=== PATIENT | female | born 1955 | race Caucasian/White ===

== ENCOUNTER → 2017-02-20 | Outpatient (CLI) | payer BC ==
--- NOTE | 2017-02-23 11:58 | MM ---
Reason for exam: screening (asymptomatic). Last mammogram was performed 1 year and 8 months ago. History: Patient is postmenopausal and is nulliparous. Family history of premenopausal breast cancer in maternal cousin and breast cancer in maternal aunt. Excisional biopsy of the right breast, August 24, 2007. Benign US right guided mammotome of the right breast, August 05, 2007. Benign excisional biopsy of the left breast, 1988. 6 cyst aspirations of the left breast. 6 cyst aspirations of the right breast. Took hormonal contraceptives for 5 years beginning at age 17. Physical Findings: A clinical breast exam by your physician is recommended on an annual basis and results should be correlated with mammographic findings. MG Screening Mammo w CAD Bilateral CC and MLO view(s) were taken. Prior study comparison: June 21, 2015, bilateral MG screening mammo w CAD. December 15, 2012, CAD bilateral diagnostic mammogram. Finding: There are typically benign calcifications, stable. There is a chronic nodularity bilaterally. No significant changes in finding since June 21, 2015 and December 15, 2012. ASSESSMENT: Benign, BI-RAD 2 RECOMMENDATION: Routine screening mammogram of both breasts in 1 year.
== END | disposition home or self-care (01) ==
LOC: RADMAMWWP 10:43
PROVIDERS: ATTEND Family Medicine
DX: Z12.31 Encounter for screening mammogram for malignant neoplasm of breast (principal)

== ENCOUNTER → 2018-03-15 | Outpatient (CLI) | payer BC ==
--- NOTE | 2018-03-15 11:51 | XR ---
EXAMINATION TYPE: XR chest 2V DATE OF EXAM: 03/15/2018 COMPARISON: None HISTORY: 62 year-old female shortness of breath TECHNIQUE: Frontal and lateral views FINDINGS: The cardiomediastinal silhouette, aorta, and pulmonary vasculature are within normal limits. Lungs an d pleural spaces are clear. IMPRESSION: No acute cardiopulmonary process.
== END | disposition home or self-care (01) ==
LOC: RADXRMAIN 09:55
PROVIDERS: ATTEND Family Medicine
DX: R06.02 Shortness of breath (principal)
CPT/HCPCS: 71046

== ENCOUNTER → 2018-03-15 | Outpatient (CLI) | payer BC ==
--- NOTE | 2018-03-17 09:29 | MM ---
Reason for exam: screening (asymptomatic). Last mammogram was performed 1 year and 1 month ago. History: Patient is postmenopausal and is nulliparous. Family history of premenopausal breast cancer in maternal cousin and breast cancer in maternal aunt. Excisional biopsy of the right breast, August 24, 2007. Benign US right guided mammotome of the right breast, August 05, 2007. Benign excisional biopsy of the left breast, 1988. 6 cyst aspirations of the left breast. 6 cyst aspirations of the right breast. Took hormonal contraceptives for 5 years beginning at age 17. Physical Findings: A clinical breast exam by your physician is recommended on an annual basis and results should be correlated with mammographic findings. MG Screening Mammo w CAD Bilateral CC and MLO view(s) were taken. Technologist: RT Kaushik (R)(M) Prior study comparison: February 20, 2017, bilateral MG screening mammo w CAD. June 21, 2015, bilateral MG screening mammo w CAD. There are scattered fibroglandular densities. There is chronic nodularity bilaterally. No significant changes when compared with prior studies. ASSESSMENT: Benign, BI-RAD 2 RECOMMENDATION: Routine screening mammogram of both breasts in 1 year.
== END | disposition home or self-care (01) ==
LOC: RADMAMWWP 09:36
PROVIDERS: ATTEND Family Medicine
DX: Z12.31 Encounter for screening mammogram for malignant neoplasm of breast (principal)
CPT/HCPCS: 77067

== ENCOUNTER → 2018-11-22 | Outpatient (CLI) | payer BC ==
--- NOTE | 2018-11-22 12:06 | CTL ---
EXAMINATION TYPE: CT Low Dose Lung DATE OF EXAM ORDERED: 11/22/2018 HISTORY: Long-term tobacco use. Lung cancer screening CT DLP: 82.[address] CTDI: 2.4 mGy Automated exposure control for dose reduction was used. SCREENING VISIT: Initial study COMPARISON: None TECHNIQUE: Low dose computed tomography scan was performed through the chest at 1 mm thick sections a nd reconstructed images in the coronal plane at [address] DIAGNOSTIC QUALITY: Satisfactory FINDINGS: LUNG NODULES: Present, detailed below: A 3 mm posterior lateral right upper lobe nodule axial image 69. A 7 x 4 mm groundglass opacity or nodule axial image 58 right upper lobe. A 5 x 3 mm right upper lobe nodule image 62. LUNGS: COPD: Severity: Mild Fibrosis: Severity: Mild biapical Lymph nodes: None Other findings: None BILATERAL PLEURAL SPACE: Effusion: None. Calcification: None. Thickening: None. Pneumothorax: None. HEART: Heart Size: Normal Coronary calcification: [id number] Pericardial effusion: None OTHER FINDINGS: Upper abdomen: None Bony thorax: Mild multilevel spurring. Slight S-shaped scoliosis is present. Supraclavicular region: No suspicious findings seen. Other: No suspicious findings. IMPRESSION: Scattered small nodules as detailed above. FOLLOW UP CT CHEST RECOMMENDATION: Follow-up low-dose lung screening CT in [address] LUNG RAD: Lung-Rad 3 Probably Benign
== END | disposition home or self-care (01) ==
LOC: RADCTMAIN 11:26
PROVIDERS: ATTEND Family Medicine
DX: Z12.2 Encounter for screening for malignant neoplasm of respiratory organs (principal); R91.8 Other nonspecific abnormal finding of lung field; F17.210 Nicotine dependence, cigarettes, uncomplicated

== ENCOUNTER → 2019-05-14 | Outpatient (CLI) | payer BC ==
--- NOTE | 2019-05-14 18:37 | CT ---
EXAMINATION TYPE: CT chest wo/w con DATE OF EXAM: 05/14/2019 COMPARISON: 11/22/2018 HISTORY: pulmonary nodules CT DLP: 719.6 mGycm, Automated exposure control for dose reduction was used. CONTRAST: Performed injected with 100 mL of Isovue 300. TECHNIQUE: Axial images were obtained at 5 mm thick sections. Reconstructed images are reviewed on [email or web address] computer in the coronal plane. FINDINGS: Thyroid is prominent and thickened. Correlate for thyromegaly. Ultrasound could be performe d for additional evaluation. No suspicious lung nodules or focal infiltrates are present. Previous right apical nodules are not ev ident. Previous posterior lateral right upper lobe nodule is only faintly visualized and is smaller t hernandez comparison. Series 4 image 13. No enlarged mediastinal or hilar adenopathy is evident. The ascending aorta diameter at the level o f the main pulmonary artery is 3.4 cm. The main pulmonary artery diameter at the bifurcation is 2.8 cm. Mild coronary artery calcification is present. Limited CT sections are obtained through the upper abdomen. Pancreatic atrophy is present. Small sple nule is present. IMPRESSIONS: 1. Correlate for thyromegaly. 2. No acute intrathoracic abnormality. 3. Previous right upper lobe nodules have diminished in size or resolved. Recommendations: 1. Follow-up low-dose CT screening thorax in 6 months, one year from initial screening CT thorax exam .
== END ==
LOC: RADCTMAIN 09:00
PROVIDERS: ATTEND Family Medicine
DX: R91.8 Other nonspecific abnormal finding of lung field (principal)
CPT/HCPCS: 71270; Q9967

== ENCOUNTER → 2020-05-05 | Outpatient (CLI) | payer BC ==
--- NOTE | 2020-05-05 10:33 | CT ---
EXAMINATION TYPE: CT chest wo con DATE OF EXAM: 05/05/2020 COMPARISON: 05/14/2019 HISTORY: Follow up nodule CT DLP: 354.8 mGycm. Automated Exposure Control for Dose Reduction was Utilized. TECHNIQUE: CT scan of the thorax is performed without IV contrast. FINDINGS: LUNGS: Subsegmental changes in upper lobes are seen likely due to atelectasis. 1 to 2 mm right upper lobe pulmonary nodule stable. No pleural effusion or pneumothorax. No consolidative pneumonia.. MEDIASTINUM: Lack of IV contrast is noted to limit evaluation for mediastinal and especially hilar ad enopathy. There are no definitive greater than 1 cm hilar or mediastinal lymph nodes. The ascending aorta diameter at the level of the main pulmonary artery is 3.4 cm. The main pulmonary artery diamet er at the bifurcation is 2.8 cm. Mild coronary artery calcification is present. OTHER: Hypertrophic and degenerative change of the spine. Thyroid gland appears enlarged there is a l eft breast nodule measuring 9 mm stable from prior exam. Recommend mammogram. Small hiatal hernia not ed. IMPRESSION: 1. Stable right upper lobe 2 mm pulmonary nodule. 2. Areas of subsegmental consolidation in both lungs most typical of atelectasis correlate clinically to exclude a pneumonitis. 3. Thyromegaly. 4. 9 mm left breast nodule recommend mammogram. 5. Coronary artery calcification.
== END | disposition home or self-care (01) ==
LOC: RADCTMAIN 09:51
PROVIDERS: ATTEND Family Medicine
DX: R91.1 Solitary pulmonary nodule (principal); E01.0 Iodine-deficiency related diffuse (endemic) goiter
CPT/HCPCS: 71250

== ENCOUNTER → 2021-02-25 | Outpatient (CLI) | payer BC ==
--- NOTE | 2021-02-25 12:36 | CT ---
EXAMINATION TYPE: CT chest wo con DATE OF EXAM: 02/25/2021 COMPARISON: 05/05/2020 HISTORY: Solitary pulmonary nodule CT DLP: 360.3 mGycm. Automated Exposure Control for Dose Reduction was Utilized. TECHNIQUE: CT scan of the thorax is performed without IV contrast. FINDINGS: LUNGS: Subsegmental changes in upper lobes are seen likely due to atelectasis. 1 to 2 mm right upper lobe pulmonary nodule stable. No pleural effusion or pneumothorax. No consolidative pneumonia. Subple ural nodule likely on the basis of pleural thickening measuring 5 mm posterior superior segment right lower lobe. MEDIASTINUM: Lack of IV contrast is noted to limit evaluation for mediastinal and especially hilar ad enopathy. There are no definitive greater than 1 cm hilar or mediastinal lymph nodes. The ascending aorta diameter at the level of the main pulmonary artery is 3.4 cm. The main pulmonary artery diamet er at the bifurcation is 2.8 cm. Mild coronary artery calcification is present. OTHER: Hypertrophic and degenerative change of the spine. Thyroid gland appears enlarged there is a left breast nodule measuring 9 mm stable from prior exam. Recommend mammogram. Small hiatal hernia no tori. There is an indeterminate right renal lesion IMPRESSION: 1. Stable 2 mm right upper lobe pulmonary nodule likely benign. 2. Stable subsegmental changes in the right apical upper lobe most likely in the basis of atelectasis . 3. Stable thyromegaly. 4. There are persistently left-sided breast nodule measuring 9 mm stable from prior exam. 5. Persistent coronary artery calcifications. 6. Indeterminate right renal lesion.
== END | disposition home or self-care (01) ==
LOC: RADCTMAIN 08:02
PROVIDERS: ATTEND Family Medicine
DX: R91.1 Solitary pulmonary nodule (principal); N63.0 Unspecified lump in unspecified breast; I25.10 Atherosclerotic heart disease of native coronary artery without angina pectoris
CPT/HCPCS: 71250

== ENCOUNTER → 2021-03-08 | Outpatient (CLI) | payer BC ==
--- NOTE | 2021-03-11 08:40 | MM ---
Reason for exam: additional evaluation requested from prior study. Last mammogram was performed 3 years ago. History: Patient is postmenopausal and is nulliparous. Family history of premenopausal breast cancer in maternal cousin and breast cancer in maternal aunt. Excisional biopsy of the right breast, August 24, 2007. Benign US right guided mammotome of the right breast, August 05, 2007. Benign excisional biopsy of the left breast, 1988. 6 cyst aspirations of the left breast. 6 cyst aspirations of the right breast. Took hormonal contraceptives for 5 years beginning at age 17. Physical Findings: Nurse did not find any significant physical abnormalities on exam. MG Diagnostic Mammo w CAD JESUS Bilateral CC and MLO view(s) were taken. Prior study comparison: March 15, 2018, bilateral MG screening mammo w CAD. February 20, 2017, bilateral MG screening mammo w CAD. June 21, 2015, bilateral MG screening mammo w CAD. The breast tissue is heterogeneously dense. This may lower the sensitivity of mammography. Finding: There is a 10 mm oval mass in the lower inner quadrant, anterior position of the left breast. There is a chronic nodularity bilaterally. New finding since March 15, 2018. These results were verbally communicated with the patient and result sheet given to the patient on 03/08/21. ASSESSMENT: Incomplete: need additional imaging evaluation, BI-RAD 0 RECOMMENDATION: Ultrasound of the left breast.
--- NOTE | 2021-03-11 08:48 | USB ---
Reason for exam: additional evaluation requested from abnormal screening. History: Patient is postmenopausal and is nulliparous. Family history of premenopausal breast cancer in maternal cousin and breast cancer in maternal aunt. Excisional biopsy of the right breast, August 24, 2007. Benign US right guided mammotome of the right breast, August 05, 2007. Benign excisional biopsy of the left breast, 1988. 6 cyst aspirations of the left breast. 6 cyst aspirations of the right breast. Took hormonal contraceptives for 5 years beginning at age 17. US Breast Limited LT Left limited breast ultrasound including focal area of concern, retroareolar and axilla demonstrates a 0.8 x 0.7 x 0.7cm oval, cystic lesion at 8 o'clock. These results were verbally communicated with the patient and result sheet given to the patient on 03/08/21. ASSESSMENT: Benign, BI-RAD 2 RECOMMENDATION: Routine screening mammogram of both breasts in 1 year.
== END | disposition home or self-care (01) ==
LOC: RADMAMWWP 13:27
PROVIDERS: ATTEND Family Medicine
DX: R92.8 Other abnormal and inconclusive findings on diagnostic imaging of breast (principal)
CPT/HCPCS: 77066

== ENCOUNTER 2021-04-10 10:07 | Day surgery (SDC) | payer BC ==
[2021-04-09 10:09] VITALS: BMI 28.3
[~2021-04-10 10:07] MED LIST: LACTATED RINGERS 1,000 ML IV SCH
[2021-04-10 10:48] VITALS: TEMP 97.5
[2021-04-10] MEDS ORDERED: PROPOFOL 10 MG/ML 20 ML VIAL IV ONE (11:28)
--- NOTE | 2021-04-10 11:56 | P.PCN ---
Date of Procedure: 04/10/21 Procedure(s) Performed: BRIEF HISTORY: Patient is a 65-year-old pleasant white female scheduled for an elective colonoscopy as a part of screening for colon rectal neoplasia. PROCEDURE PERFORMED: Colonoscopy snare polypectomy. PREOPERATIVE DIAGNOSIS: Screening For colon cancer. IV sedation per Anesthesia. PROCEDURE: After informed consent was obtained, the patient, was brought into the endoscopy unit. IV sedation was administered by Anesthesia under continuous monitoring. Digital rectal examination was normal. Initially the Olympus CF-160 flexible video colonoscope was then inserted in the rectum, gradually advanced into the cecum without any difficulty. Careful examination was performed as the scope was gradually being withdrawn. Ileocecal valve and the appendiceal orifice were visualized and appeared normal. Prep was excellent. Mucosa of the cecum, ascending colon, transverse colon, descending colon, sigmoid colon, appeared normal. In the rectosigmoid colon there was a 1 cm polyp removed by snare polypectomy. In the rectum there was a 5 mm polyp removed by snare polypectomy. Retroflexion was performed in the rectum and no lesions were seen. The patient tolerated the procedure well. IMPRESSION: 1 cm rectosigmoid polyp status post polypectomy 5 mm rectal polyp status post polyp RECOMMENDATIONS: Findings of this examination were discussed with the patientas well as a family. She was advised to follow with the biopsy. If the biopsy is adenoma she can have a repeat colonoscopy in 3 years].
[2021-04-10 12:10] VITALS: BP 112/74; PULSE 54; RESP 16
== END 2021-04-10 12:31 | disposition home or self-care (01) ==
LOC: ORWHC2ENDO 10:07
PROVIDERS: ATTEND Internal Medicine Gastroenterology
DX: Z12.11 Encounter for screening for malignant neoplasm of colon (principal); K63.5 Polyp of colon; F17.210 Nicotine dependence, cigarettes, uncomplicated; I10 Essential (primary) hypertension; E78.5 Hyperlipidemia, unspecified; Z88.2 Allergy status to sulfonamides; Z91.048 Other nonmedicinal substance allergy status; Z79.899 Other long term (current) drug therapy
CPT/HCPCS: 88305; 45385; J2704

== ENCOUNTER → 2022-12-01 | Outpatient (CLI) | payer MEDICARE, BC ==
[2022-12-01 17:14] LABS: African American GFR (CKD) >90 (>60 ml/min/1.73 sqM); Blood Urea Nitrogen 18 mg/dL (7-17); Non-African American GFR(CKD) >90 (>60 ml/min/1.73 sqM)
--- NOTE | 2022-12-02 11:25 | CT ---
EXAMINATION TYPE: CT abdomen w con DATE OF EXAM: 12/01/2022 COMPARISON: CT chest 03/07/2021 HISTORY: Cysts on right kidney CT DLP: 931.7 mGycm Automated exposure control for dose reduction was used. TECHNIQUE: Helical acquisition of images was performed from the lung bases through the top of iliac crest to include entire abdomen. CONTRAST: Performed with Oral Contrast and with IV Contrast, patient injected with 100cc mL of Isovue 300. FINDINGS: LUNG BASES: No significant abnormality is appreciated. LIVER/GB: No significant abnormality is appreciated. PANCREAS: No significant abnormality is seen. SPLEEN: No significant abnormality is seen. ADRENALS: No significant abnormality is seen. KIDNEYS: Right kidney: There is a 1.8 cm exophytic lesion extending off the mid pole right kidney measuring 36 Hounsfield units. There is an exophytic upper pole lesion measuring 2 cm and 17 Hounsfield units. There is a punctate 3 mm nonobstructing right renal calculus. Additionally, suggestion of bifid renal collecting system. Left kidney: Punctate 3 mm mid pole nonobstructing left renal calculus. BOWEL: No significant abnormality is seen. LYMPH NODES: No significant abnormality is seen. OSSEOUS STRUCTURES: No significant abnormality is seen. FREE AIR: No free air is visualized. OTHER: Atherosclerotic change aorta. Its wall hiatal hernia incidentally noted. Hypertrophic and dege nerative changes of the spine. Multilevel facet arthropathy. Small fat-containing periumbilical herni a. Bilateral subcentimeter nodules within the bilateral breasts. IMPRESSION: 1. There are two approximately 2 cm lesions involving the right kidney which do not meet the criteria for simple cyst by Hounsfield unit measurement. Most likely etiology would be a Bosniak classificati on 2 hemorrhagic or highly proteinaceous cysts. However, MRI is recommended to fully characterize the lesions and their Bosniak classification. 2. Nonobstructing bilateral renal calculi. 3. There bilateral subcentimeter nodules within the breasts recommend follow-up mammogram.
== END | disposition home or self-care (01) ==
LOC: RADCTMAIN 16:25
PROVIDERS: ATTEND Family Medicine
DX: N20.0 Calculus of kidney (principal); N63.20 Unspecified lump in the left breast, unspecified quadrant; N63.10 Unspecified lump in the right breast, unspecified quadrant; N28.1 Cyst of kidney, acquired; N28.89 Other specified disorders of kidney and ureter
CPT/HCPCS: 82565; 84520; 74160; 36415; Q9967

== ENCOUNTER → 2022-12-02 | Outpatient (CLI) | payer MEDICARE, BC ==
--- NOTE | 2022-12-03 09:14 | MM ---
Reason for Exam: Screening (asymptomatic). Last mammogram was performed 1 year(s) and 9 month(s) ago. Patient History: Menarche at age 12. Patient has no children. Postmenopausal. Hormonal Contraceptives for 5 years from age 17 until age 22. 08/24/2007, Excisional Biopsy on the Right side. Cyst Aspiration on the Right side. Cyst Aspiration on the Right side. Cyst Aspiration on the Right side. Cyst Aspiration on the Right side. Cyst Aspiration on the Right side. Cyst Aspiration on the Right side. Cyst Aspiration on the Left side. Cyst Aspiration on the Left side. Cyst Aspiration on the Left side. Cyst Aspiration on the Left side. Cyst Aspiration on the Left side. Cyst Aspiration on the Left side. 1988, Benign Excisional Biopsy on the left side. 08/05/2007, Benign Core Biopsy on the right side. Maternal cousin had breast cancer at or over age 50. Maternal aunt had breast cancer under age 50. Maternal aunt had breast cancer at or over age 50. Maternal cousin had breast cancer under age 50. Risk Values: Pamela 5 year model risk: 3.1%. NCI Lifetime model risk: 10.8%. Prior Study Comparison: 02/12/2010 Bilateral Diagnostic Mammogram, [facility]. 12/15/2012 Bilateral Diagnostic Mammogram, [facility]. 06/21/2015 Bilateral Screening Mammogram, [facility]. 02/20/2017 Bilateral Screening Mammogram, [facility]. 03/15/2018 Bilateral Screening Mammogram, [facility]. 03/08/2021 Bilateral Diagnostic Mammogram, [facility]. Tissue Density: The breast tissue is heterogeneously dense. This may lower the sensitivity of mammography. Findings: Analyzed By CAD. There is no suspicious group of microcalcifications or new suspicious mass in either breast. Chronic nodularity within both breasts appears stable. Benign calcifications in the left breast. Overall Assessment: Benign, BI-RAD 2 Management: Screening Mammogram of both breasts in 1 year. A clinical breast exam by your physician is recommended on an annual basis and results should be correlated with mammographic findings. Electronically signed and approved by: Yayo Gonzalez D.O.
== END | disposition home or self-care (01) ==
LOC: RADMAMWWP 08:22
PROVIDERS: ATTEND Family Medicine
DX: Z12.31 Encounter for screening mammogram for malignant neoplasm of breast (principal); Z78.0 Asymptomatic menopausal state; Z80.3 Family history of malignant neoplasm of breast
CPT/HCPCS: 77063; 77067

== ENCOUNTER → 2023-03-10 | Outpatient (CLI) | payer MEDICARE, BC ==
--- NOTE | 2023-03-14 09:18 | MR ---
EXAMINATION TYPE: MR kidney wo/w con DATE OF EXAM: 03/10/2023 10:31 PM INDICATION: Patient age:Female; 67 years old; Reason for study: N28.1;. Cyst of kidney COMPARISON: CT scan abdomen from 12/01/2022. TECHNIQUE: Multiplanar multi-sequence imaging was performed without contrast. Post contrast imaging was performed. Post IV contrast subtraction images were also submitted for review. IV Contrast: 8 cc Gadavist FINDINGS: LOWER CHEST: No gross irregularity. ABDOMEN Liver: High T2 signal cyst in segment 4A measuring 5 mm additional scattered smaller cysts are also p resent. Gallbladder and Bile ducts: Unremarkable. Pancreas: Main pancreatic duct is nondilated. There are some prominent accessory ducts noted. Spleen: Unremarkable. Adrenal glands: Unremarkable. Kidneys: Right: scattered subcentimeter high T2 signal simple appearing renal cysts measuring up to 4 mm. Additionally there is a low T2 high T1 signal lesion present in the renal cortex measuring 8 mm delia tible with proteinaceous/hemorrhagic cyst. The 2 lesions of concern from prior CT measuring 2.3 cm posteriorly laterally and 2.2 cm posterior me dially remain similar to prior CT in size. The medial lesion demonstrates intrinsic high T1 signal. T he lateral lesion does not demonstrate intrinsic high T1 signal. Postcontrast imaging demonstrates no abnormal postcontrast enhancement. Findings confirmed on subtraction imaging. There are no suspiciou s renal lesions. Left: High T2 signal nonenhancing subcentimeter cysts present. There is subcentimeter scattered foci of high a intrinsic T1 signal largest measuring 4 mm compatible with proteinaceous/hemorrhagic cyst. Stomach and Bowel: Unremarkable as visualized. Peritoneum: No evidence of pneumoperitoneum or free fluid. Vasculature: Unremarkable. No aortic aneurysm. Musculoskeletal: The osseous structures appear intact. Lymph Nodes: No gross evidence for lymphadenopathy. Abdominal wall: Unremarkable. IMPRESSION: 1. The lesions of concern within the right kidney are compatible with benign Bosniak type I and II r enal cysts no suspicious or renal masses identified. Additional bilateral neck and Bosniak type I-typ e II renal cysts are present in bilateral kidneys which are not well appreciated on prior CT due to t heir size. 2. No acute abdominal process
== END | disposition home or self-care (01) ==
LOC: RADMRIMAIN 21:15
PROVIDERS: ATTEND Family Medicine
DX: N28.1 Cyst of kidney, acquired (principal); N28.89 Other specified disorders of kidney and ureter
CPT/HCPCS: 74183; A9585

== ENCOUNTER → 2023-12-30 | Outpatient (CLI) | payer MEDICARE, BC ==
--- NOTE | 2023-12-30 11:23 | CTL ---
EXAMINATION TYPE: CT Low Dose Lung DATE OF EXAM ORDERED: 12/30/2023 HISTORY: Long-term tobacco use. Lung cancer screening CT DLP: 78.[address] CTDI: 2.4 mGy Automated exposure control for dose reduction was used. SCREENING VISIT: First after baseline COMPARISON: Prior study November 22, 2018 TECHNIQUE: Low dose computed tomography scan was performed through the chest at 1 mm thick sections a nd reconstructed images in multiple planes at 1 mm and [address] DIAGNOSTIC QUALITY: Satisfactory LUNG NODULES: Present, detailed below: Few scattered small nodules redemonstrated. A 3 mm posterior lateral right upper lobe nodule axial image 57 stable. A approximately by 6 mm groundglass nodule axial image 45 right upper lobe stable accounting for tech nical differences. A 3 mm right upper lobe nodule image 52 stable. Additional scattered small nodules are stable for reference 4 mm left mid lung nodule axial image 135 . No enlarging greater than 6 mm pulmonary nodules. LUNGS: COPD: Severity: Mild Fibrosis: Severity: None Lymph nodes: None Other findings: None BILATERAL PLEURAL SPACE: Effusion: None. Calcification: None. Thickening: None. Pneumothorax: None. HEART: Heart Size: Normal Coronary calcification: Moderate Pericardial effusion: None OTHER FINDINGS: Upper abdomen: None Bony thorax: Mild multilevel spurring. Slight S-shaped scoliosis is redemonstrated. Supraclavicular region: Suspect small calcified left thyroid nodule-like axial image 1. Other: No suspicious findings. IMPRESSION: Stable Scattered small nodules as detailed above. No new or enlarging greater than [address] LUNG RAD AND CT CHEST RECOMMENDATION: Lung-Rad 2 Benign Appearance or Behavior: Continue annual sc reening with LDCT in 12 months. S Modifier (other clinically significant findings): None
--- NOTE | 2023-12-31 09:02 | MM ---
Reason for Exam: Screening (asymptomatic). Last mammogram was performed 1 year(s) and 1 month(s) ago. Patient History: Menarche at age 12. Patient has no children. Postmenopausal. Hormonal Contraceptives for 5 years from age 17 until age 22. 08/24/2007, Excisional Biopsy on the Right side. Cyst Aspiration on the Right side. Cyst Aspiration on the Right side. Cyst Aspiration on the Right side. Cyst Aspiration on the Right side. Cyst Aspiration on the Right side. Cyst Aspiration on the Right side. Cyst Aspiration on the Left side. Cyst Aspiration on the Left side. Cyst Aspiration on the Left side. Cyst Aspiration on the Left side. Cyst Aspiration on the Left side. Cyst Aspiration on the Left side. 1988, Benign Excisional Biopsy on the left side. 08/05/2007, Benign Core Biopsy on the right side. Maternal cousin had breast cancer at or over age 50. Maternal aunt had breast cancer under age 50. Maternal aunt had breast cancer at or over age 50. Maternal cousin had breast cancer under age 50. Risk Values: Pamela 5 year model risk: 3.1%. NCI Lifetime model risk: 10.4%. Prior Study Comparison: 06/21/2015 Bilateral Screening Mammogram, [facility]. 02/20/2017 Bilateral Screening Mammogram, [facility]. 03/15/2018 Bilateral Screening Mammogram, [facility]. 03/08/2021 Bilateral Diagnostic Mammogram, [facility]. 12/02/2022 Bilateral MG 3D screening mammo w/cad, [facility]. Tissue Density: The breasts are heterogeneously dense, which may obscure small masses. Findings: Analyzed By CAD. There is bilateral chronic nodularity is stable. Benign appearing calcifications. Within the central aspect of the left breast there is interval increase in size of a nodule approximately 6.8 cm from the nipple line. Recommend spot compression view. Overall Assessment: Incomplete: need additional imaging evaluation, BI-RAD 0 Management: Diagnostic Mammogram of the left breast. . Patient should continue monthly self-breast exams. A clinical breast exam by your physician is recommended on an annual basis. This exam should not preclude additional follow-up of suspicious palpable abnormalities. Note on Pamela scores and lifetime risk: 1. A Pamela score greater than 3% is considered moderate risk. If this is the case, consider specialist referral to assess eligibility for a risk reducing agent. 2. If overall lifetime risk for the development of breast cancer is 20% or higher, the patient may qualify for future screening with alternating mammogram and breast MRI. Electronically signed and approved by: Remy Young M.D. Radiologis
== END | disposition home or self-care (01) ==
LOC: RADMAMWWP 10:13
PROVIDERS: ATTEND Family Medicine
DX: Z12.31 Encounter for screening mammogram for malignant neoplasm of breast (principal); Z12.2 Encounter for screening for malignant neoplasm of respiratory organs; F17.210 Nicotine dependence, cigarettes, uncomplicated; R91.8 Other nonspecific abnormal finding of lung field; Z80.3 Family history of malignant neoplasm of breast; Z78.0 Asymptomatic menopausal state
CPT/HCPCS: 71271; 77067

== ENCOUNTER → 2024-01-04 | Outpatient (CLI) | payer MEDICARE, BC ==
--- NOTE | 2024-01-04 10:25 | MM ---
Reason for Exam: Additional evaluation requested from abnormal screening. Last screening mammogram was performed less than 1 month ago. Patient History: Menarche at age 12. Patient has no children. Postmenopausal. Hormonal Contraceptives for 5 years from age 17 until age 22. 08/24/2007, Excisional Biopsy on the Right side. Cyst Aspiration on the Right side. Cyst Aspiration on the Right side. Cyst Aspiration on the Right side. Cyst Aspiration on the Right side. Cyst Aspiration on the Right side. Cyst Aspiration on the Right side. Cyst Aspiration on the Left side. Cyst Aspiration on the Left side. Cyst Aspiration on the Left side. Cyst Aspiration on the Left side. Cyst Aspiration on the Left side. Cyst Aspiration on the Left side. 1988, Benign Excisional Biopsy on the left side. 08/05/2007, Benign Core Biopsy on the right side. Maternal cousin had breast cancer at or over age 50. Maternal aunt had breast cancer under age 50. Maternal aunt had breast cancer at or over age 50. Maternal cousin had breast cancer under age 50. Risk Values: Pamela 5 year model risk: 3.1%. NCI Lifetime model risk: 10.4%. Prior Study Comparison: 03/08/2021 Bilateral Diagnostic Mammogram, [facility]. 12/02/2022 Bilateral MG 3D screening mammo w/cad, [facility]. 12/30/2023 Bilateral MG screening mammo w CAD, [facility]. Tissue Density: Left: The breasts are heterogeneously dense, which may obscure small masses. Findings: Analyzed By CAD. The pattern is stable. Under compression there is some circumscribed rounded densities. Short-term follow-up recommended. Overall Assessment: Probably benign, BI-RAD 3 Management: Diagnostic Mammogram of the left breast in 6 months. A negative mammogram report should not preclude additional follow up of suspicious palpable abnormalities. Patient should continue monthly self breast exam. A clinical breast exam by your physician is recommended on an annual basis and results should be correlated with mammographic findings. Note on Pamela scores and lifetime risk: 1. A Pamela score greater than 3% is considered moderate risk. If this is the case, consider specialist referral to assess eligibility for a risk reducing agent. 2. If overall lifetime risk for the development of breast cancer is 20% or higher, the patient may qualify for future screening with alternating mammogram and breast MRI. Electronically signed and approved by: Evan Leslie D.O. Radiologis
== END | disposition home or self-care (01) ==
LOC: RADMAMWWP 10:00
PROVIDERS: ATTEND Family Medicine
DX: R92.332 Mammographic heterogeneous density, left breast (principal); R92.8 Other abnormal and inconclusive findings on diagnostic imaging of breast; Z78.0 Asymptomatic menopausal state; Z80.3 Family history of malignant neoplasm of breast
CPT/HCPCS: 77065; G0279; 77061

== ENCOUNTER → 2024-12-27 | Outpatient (CLI) | payer MEDICARE, BC ==
--- NOTE | 2024-12-27 11:53 | MM ---
Reason for Exam: Additional evaluation requested from prior study. Last screening mammogram was performed 12 month(s) ago. Patient History: Menarche at age 12. Patient has no children. Postmenopausal. Hormonal Contraceptives for 5 years from age 17 until age 22. 08/24/2007, Excisional Biopsy on the Right side. Cyst Aspiration on the Right side. Cyst Aspiration on the Right side. Cyst Aspiration on the Right side. Cyst Aspiration on the Right side. Cyst Aspiration on the Right side. Cyst Aspiration on the Right side. Cyst Aspiration on the Left side. Cyst Aspiration on the Left side. Cyst Aspiration on the Left side. Cyst Aspiration on the Left side. Cyst Aspiration on the Left side. Cyst Aspiration on the Left side. 1988, Benign Excisional Biopsy on the left side. 08/05/2007, Benign Core Biopsy on the right side. Maternal cousin had breast cancer at or over age 50. Maternal aunt had breast cancer under age 50. Maternal aunt had breast cancer at or over age 50. Maternal cousin had breast cancer under age 50. Risk Values: Pamela 5 year model risk: 3.1%. NCI Lifetime model risk: 10.0%. Prior Study Comparison: 05/11/1995 Screening Mammogram, Unknown. 06/23/1996 Screening Mammogram, Unknown. 02/13/2009 Left Diagnostic Ultrasound, [facility]. 01/22/2010 Bilateral Screening Mammogram, [facility]. 02/12/2010 Bilateral Diagnostic Mammogram, [facility]. 02/12/2010 Bilateral Diagnostic Ultrasound, [facility]. 12/15/2012 Bilateral Diagnostic Mammogram, [facility]. 12/15/2012 Right Diagnostic Ultrasound, [facility]. 06/21/2015 Bilateral Screening Mammogram, [facility]. 02/20/2017 Bilateral Screening Mammogram, [facility]. 03/15/2018 Bilateral Screening Mammogram, [facility]. 03/08/2021 Bilateral Diagnostic Mammogram, [facility]. 03/08/2021 Left Diagnostic Ultrasound, [facility]. 12/02/2022 Bilateral MG 3D screening mammo w/cad, [facility]. 12/30/2023 Bilateral MG screening mammo w CAD, [facility]. 01/04/2024 Left MG 3D work up w/cad LT, [facility]. Tissue Density: The breasts are heterogeneously dense, which may obscure small masses. Findings: Analyzed By CAD. Benign-appearing dystrophic calcifications in the left breast are redemonstrated. There are similar circumscribed round masses bilaterally again seen measuring up to 10 mm in the left breast. No definitive new or enlarging masses are identified. Benign-appearing left axillary lymph nodes are redemonstrated. Overall Assessment: Benign, BI-RAD 2 Management: Screening Mammogram of both breasts in 1 year. . Results were given to the patient verbally at the time of exam. Patient should continue monthly self-breast exams. A clinical breast exam by your physician is recommended on an annual basis. This exam should not preclude additional follow-up of suspicious palpable abnormalities. Note on Pamela scores and lifetime risk: 1. A Pamela score greater than 3% is considered moderate risk. If this is the case, consider specialist referral to assess eligibility for a risk reducing agent. 2. If overall lifetime risk for the development of breast cancer is 20% or higher, the patient may qualify for future screening with alternating mammogram and breast MRI. [facility], , 12/27/2024 11:51 AM. Electronically signed and approved by: Grover Riggs M.D.
== END | disposition home or self-care (01) ==
LOC: RADMAMWWP 11:26
PROVIDERS: ATTEND Family Medicine
DX: R92.332 Mammographic heterogeneous density, left breast (principal); Z78.0 Asymptomatic menopausal state; Z80.3 Family history of malignant neoplasm of breast; Z92.0 Personal history of contraception
CPT/HCPCS: 77066; G0279; 77062

== ENCOUNTER → 2024-12-30 | Outpatient (CLI) | payer MEDICARE, BC ==
--- NOTE | 2025-01-01 11:53 | CTL ---
EXAMINATION TYPE: CT Low Dose Lung DATE OF EXAM: 12/30/2024 9:33 AM COMPARISON: 12/30/2023 SCREENING VISIT: Subsequent CT DIAGNOSTIC QUALITY: Satisfactory CLINICAL INDICATION: Female, 69 years old with history of F17.210 tobacco dependence, Current smoker, 1 ppd x 45 years, Lung cancer screening, History of tobacco use. TECHNIQUE: Low dose computed tomography scan was performed through the chest at 1 mm thick sections a nd reconstructed images in the coronal plane at 1 mm thick sections. Contrast used: mL of , (none if empty) Oral contrast used: (none if empty) CT DLP: 86.80 mGycm, Automated exposure control for dose reduction was used. CT CTDI: 2.4 mGy, Automated exposure control for dose reduction was used. FINDINGS: LUNG NODULES: None. No suspicious change nodules identified. There is some linear opacity in the posterior right lung apex measuring 2.0 x 0.4 cm. This is smaller in thickness from the prior exam previous measurement 0.8 x 0.6 cm LUNGS: COPD: Severity: None Fibrosis: Severity: None Lymph nodes: None Other findings: There is fullness of the thyroid. RIGHT PLEURAL SPACE: Effusion: None Calcification: None Thickening: None Pneumothorax: None LEFT PLEURAL SPACE: Effusion: None Calcification: None Thickening: None Pneumothorax: None HEART: Other: Ascending thoracic aorta at the level the main pulmonary artery measures 3.7 cm. The main pul monary artery at the bifurcation measures 2.8 cm. Heart Size: Normal Coronary calcification: Moderate coronary artery calcifications present. Pericardial effusion: None OTHER FINDINGS: Upper abdomen: Normal Bony thorax: Normal Supraclavicular region: Normal IMPRESSION: 1. Improving appearance of a density at the posterior right apex. Continued monitoring is recommended . FOLLOW UP CT CHEST RECOMMENDATION: Follow-up low-dose CT chest one year CT LUNG RAD: Lung-Rad 2 Benign Appearance or Behavior [facility], Workstation: [email or web address], 01/01/2025 11:50 AM
== END | disposition home or self-care (01) ==
LOC: RADCTMAIN 08:44
PROVIDERS: ATTEND Family Medicine
DX: Z12.2 Encounter for screening for malignant neoplasm of respiratory organs (principal); F17.210 Nicotine dependence, cigarettes, uncomplicated; J98.4 Other disorders of lung
CPT/HCPCS: 71271